=== PATIENT | female | born 1965 | race African-American/Black ===

== ENCOUNTER 2017-03-10 12:05 | Emergency (ER) | payer OTHER ==
[~2017-03-10] VITALS: Ht 160 cm; Wt 51.4 kg
[2017-03-10] MEDS ORDERED: NIFE10 PO (12:10)
[2017-03-10] MEDS ORDERED: LISI-662 PO (12:10)
[2017-03-10] MEDS ORDERED: ATOR40TA28 PO (12:13)
[2017-03-10] MEDS ORDERED: ASPI-556 PO (12:13)
[2017-03-10 12:22] VITALS: BP 148/108
== END 2017-03-10 12:40 | disposition home or self-care (01) ==
LOC: EMS 12:06
DX: R10.84 Generalized abdominal pain (principal); F41.9 Anxiety disorder, unspecified; I10 Essential (primary) hypertension; E78.00 Pure hypercholesterolemia, unspecified; F15.90 Other stimulant use, unspecified, uncomplicated
CPT/HCPCS: 99281